=== PATIENT | female | born 1950 | race Caucasian/White ===

== ENCOUNTER 2022-01-02 10:24 | Emergency (ER) | payer BC, OTHER ==
[2022-01-02 11:12] VITALS: BP 130/74; PULSE 78; TEMP 98.1; BMI 23.4
== END 2022-01-02 11:05 | disposition home or self-care (01) ==
LOC: FER 10:24
DX: S60.450A Superficial foreign body of right index finger, initial encounter (principal); W49.04XA Ring or other jewelry causing external constriction, initial encounter
CPT/HCPCS: 99282-25